=== PATIENT | female | born 1960 | race Caucasian/White ===

== ENCOUNTER 2017-03-26 12:45 | Emergency (ER) | payer OTHER ==
[~2017-03-26] VITALS: Ht 152.4 cm; Wt 50.0 kg
[2017-03-26] MEDS ORDERED: IODIXANOL 320 MG/ML 10 ML VIAL (for Rad CT) IVCONTRAST ONE (12:46)
[2017-03-26 13:25] VITALS: BP 180/81; PULSE 90; RESP 22; TEMP 98.4; O2SAT 98
[2017-03-26 13:29] VITALS: O2SAT 98
[2017-03-26] MEDS ORDERED: CLON.5 PO (13:34)
[2017-03-26] MEDS ORDERED: MODA200T12 PO (13:34)
[2017-03-26] MEDS ORDERED: ONDANSETRON HCL 4 MG/2 ML VIAL IV PUSH ONE (13:45)
[2017-03-26] MEDS ORDERED: MORPHINE SULFATE 4 MG/ML INJ IV PUSH ONE ×2 (13:45→15:15)
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
[2017-03-26 14:13] LABS: AUTOMATED NEUTROPHIL # 11.6 TH/MM3 (1.8-7.7); BASOPHIL % 0.3 % (0.0-2.0); EOSINOPHIL % 0.1 % (0.0-4.0); HEMATOCRIT 35.8 % (35.0-46.0); HEMOGLOBIN 13.1 GM/DL (11.6-15.3); LYMPH % 3.4 % (9.0-44.0); LYMPHOCYTE # 0.4 TH/MM3 (1.0-4.8); MEAN CELL VOLUME 94.7 FL (80.0-100.0); MEAN CORPUSCULAR HEMOGLOBIN 34.7 PG (27.0-34.0); MEAN PLATELET VOLUME 8.5 FL (7.0-11.0); MONO % 5.2 % (0.0-8.0); MONOCYTE # 0.7 TH/MM3 (0-0.9); PLATELET COUNT 184 TH/MM3 (150-450); RED BLOOD COUNT 3.78 MIL/MM3 (4.00-5.30); RED CELL DISTRIBUTION WIDTH 14.4 % (11.6-17.2); WHITE BLOOD COUNT 12.7 TH/MM3 (4.0-11.0)
[2017-03-26 14:19] LABS: MEAN CORPUSCULAR HGB CONC 36.7 % (32.0-36.0)
[2017-03-26 14:24] LABS: INTERNATIONAL NORMALIZED RATIO 1.1 RATIO; PROTHROMBIN TIME - PATIENT 10.7 SEC (9.8-11.6)
[2017-03-26 14:28] LABS: BICARBONATE 23.2 MEQ/L (21.0-32.0); CALCIUM 8.9 MG/DL (8.5-10.1); CREATININE 0.72 MG/DL (0.50-1.00)
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
[2017-03-26 15:00] VITALS: BP 143/90; PULSE 84; RESP 18; O2SAT 98
[2017-03-26] MEDS ORDERED: MORPHINE SULFATE 2 MG/ML INJ IV PUSH ONE ×2 (15:15)
[2017-03-26 15:45] VITALS: BP 133/80; PULSE 86; RESP 11; O2SAT 99
[2017-03-26 16:00] VITALS: BP 133/80; PULSE 86; RESP 11; O2SAT 99
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
[2017-03-26] MEDS ORDERED: META800 PO (17:28)
[2017-03-26 17:29] VITALS: BP 133/72; PULSE 76; RESP 15; O2SAT 97
== END 2017-03-26 19:11 | disposition home or self-care (01) ==
LOC: NEPC 12:45
DX: S86.912A Strain of unspecified muscle(s) and tendon(s) at lower leg level, left leg, initial encounter (principal); M54.2 Cervicalgia; M79.622 Pain in left upper arm; V27.4XXA Motorcycle driver injured in collision with fixed or stationary object in traffic accident, initial encounter
CPT/HCPCS: 70450; 71010; 71260; 72125; 73060; 73564; 74177; 80048; 85025; 85610; 85730; 86077; 86850; 86870; 86900; 86901; 86902; 96374; 96375; 96376; 99285; J2270; J2405; L0150; Q9967